=== PATIENT | female | born 1995 ===

== ENCOUNTER 2022-05-12 16:17 | Outpatient (CLI) | payer OTHER | END 2022-05-12 17:04 | disposition home or self-care (01) | LOC: PRENATAL 16:17 | PROVIDERS: ATTEND Obstetrics & Gynecology Maternal & Fetal Medicine | DX: O35.0XX0 Maternal care for (suspected) central nervous system malformation in fetus, not applicable or unspecified (principal); Z3A.20 20 weeks gestation of pregnancy; O35.3XX0 Maternal care for (suspected) damage to fetus from viral disease in mother, not applicable or unspecified; O28.1 Abnormal biochemical finding on antenatal screening of mother; Z88.0 Allergy status to penicillin ==